=== PATIENT | male | born 1955 | race Caucasian/White ===

== ENCOUNTER 2016-06-10 10:15 | Emergency (ER) | payer OTHER ==
[~2016-06-10] VITALS: Ht 188 cm; Wt 106.0 kg
[~2016-06-10 10:15] MED LIST: ALLE12TA PO; ALPR0.5T99 PO; ENAL5TAB98 PO; EXEN10PE SQ; GLUC5TAB3 PO; MECL25 PO; PIOG15 PO; PROM25SU8 PO; STAR60TA PO
[2016-06-10 10:16] VITALS: BP 124/78; PULSE 116; RESP 24; TEMP 97.4; O2SAT 100
[2016-06-10] MEDS ORDERED: SODIUM CHLOR 0.9% 1000 ML INJ 1,000 ML IV SCH (11:36)
[2016-06-10] MEDS ORDERED: LORazepam 2 MG/ML VIAL IV PUSH ONE (11:45)
[2016-06-10 11:50] VITALS: RESP 18; O2SAT 97
[2016-06-10 12:00] VITALS: BP 114/67; PULSE 85; RESP 20; O2SAT 97
--- NOTE | 2016-06-10 12:04 | PD ---
HPI Chief Complaint: Anxiety Time Seen by Provider: 11:59 Travel History International Travel<30 days: No Contact w/Intl Traveler<30days: No Traveled to known affect area: No History of Present Illness HPI 60-year-old male that presents to the ED for evaluation of agitation, insomnia as well as restlessness and anxiety since stopping Reglan for this ago. Per patient he stopped taking this medication for gastroparesis secondary to making him sleepy. Per patient a coworker found him sleeping at work and he is concerned that he might lose his job if he continues taking this medication. Patient stopped that about 4 days ago and since then his been having severe agitation, insomnia and restlessness. Per patient he feels like he wants to hit someone but he doesn't want to do it. Per patient his more anxious than usual. He never had anything like this before. He denies any history of depression. Denies any suicidal or homicidal ideation. Per patient he also recently stopped taking his glipizide after his Dr. told yesterday that his sugars were going low. Per patient he had blood work yesterday which showed this at [facility]. Patient try to call his doctor to see if he could see him to get evaluated for the symptoms that he is complaining of now but he could not get a hold and so he decided to come here instead. Per patient he wants something to calm him down. Patient denies any pain of any kind. Per patient he is also not been eating much because he feels that he cannot keep anything down. He is able to keep some fluids down but states that he feels like his food and fluids go all the way to his throat. Allergies to adhesives. Symptoms have been progressively getting worse. PFSH Past Medical History Anxiety: Yes Heart Rhythm Problems: No Cancer: No Cardiovascular Problems: Yes High Cholesterol: No Chest Pain: No Cerebrovascular Accident: No Diabetes: Yes (takes insulin. last dose last night. oral meds today. last gluc 85) Patient Takes Glucophage: No Endocrine: Yes Genitourinary: No Headaches: Yes Hypertension: Yes Immune Disorder: No Musculoskeletal: No Neurologic: Yes Psychiatric: No Reproductive: No Respiratory: Yes (never smoked) Migraines: No Myocardial Infarction: No Seizures: No Thyroid Disease: No Tetanus Vaccination: > 5 Years Influenza Vaccination: No ?: Not Past Surgical History Abdominal Surgery: No Cardiac Surgery: No Ear Surgery: No Endocrine Surgery: No Eye Surgery: No Genitourinary Surgery: No Gynecologic Surgery: No Oral Surgery: Yes (TONSILS ) Thoracic Surgery: No Tonsillectomy: Yes Other Surgery: Yes Social History Alcohol Use: No Tobacco Use: No Substance Use: No Allergies-Medications (Allergen,Severity, Reaction): Coded Allergies: Adhesives (Verified Allergy, Severe, Rash, 11/07/09) Reported Meds & Prescriptions Reported Meds & Active Scripts Active Bethanechol 10 Mg Tab 10 Mg PO TIDAC PRN Promethazine Hcl (Promethazine HCl) 25 Mg Tab 25 Mg PO Q6HPRN FOR NAUSEA/VOMITING Antivert (Meclizine HCl) 25 Mg Tab 1-2 Tab PO QIDPRN Xanax (Alprazolam) 0.5 Mg Tab 0.5 Mg PO BIDPRN Ashley-D 12 Hour (Fexofenadine HCl/Pseudoephedrine) 12 Hour Tab 1 Tab PO BID Reported Byetta 10 Mcg/Dose Prefilled Pen (Exenatide) 10 Mcg/0.04 Ml Inj 10 Mcg SQ BIDAC FOR SUBCUTANEOUS INJECTION Vasotec (Enalapril Maleate) 5 Mg Tab 5 Mg PO DAILY Glucovance 5/500 (Glyburide/Metformin) Tab 1 Tab PO BID Starlix (Nateglinide) 60 Mg Tab 120 Mg PO TID Actos 15 mg (Pioglitazone HCl) 15 Mg Tab 15 Mg PO DAILY Review of Systems Except as stated in HPI: all other systems reviewed are Neg Physical Exam Narrative GENERAL: SKIN: Warm and dry. HEAD: Atraumatic. Normocephalic. EYES: Pupils equal and round. No scleral icterus. No injection or drainage. ENT: No nasal bleeding or discharge. Mucous membranes pink and moist. Tongue is midline. No uvula deviation. NECK: Trachea midline. No JVD. CARDIOVASCULAR: Regular rate and rhythm. No murmurs, S3, S4. RESPIRATORY: No accessory muscle use. Clear to auscultation. Breath sounds equal bilaterally. GASTROINTESTINAL: Abdomen soft, non-tender, nondistended. Hepatic and splenic margins not palpable. MUSCULOSKELETAL: Extremities without clubbing, cyanosis, or edema. No obvious deformities. Full range of motion of the upper and lower extremities bilaterally. 2+ pulses bilaterally. NEUROLOGICAL: Awake and alert. No obvious cranial nerve deficits. Motor grossly within normal limits. Five out of 5 muscle strength in the arms and legs. Normal speech. PSYCHIATRIC: Appropriate mood and affect; insight and judgment normal. Data Data Last Documented VS Vital Signs Date Time Temp Pulse Resp B/P Pulse Ox O2 Delivery O2 Flow Rate FiO2 06/10/16 12:00 85 20 114/67 97 Room Air 06/10/16 10:16 97.4 Orders Complete Blood Count With Diff (06/10/16 11:34) Comprehensive Metabolic Panel (06/10/16 11:34) Lipase (06/10/16 11:34) Urinalysis - C+S If Indicated (06/10/16 11:34) Magnesium (Mg) (06/10/16 11:34) Thyroid Stimulating Hormone (06/10/16 11:34) Iv Access Insert/Monitor (06/10/16 11:34) Ecg Monitoring (06/10/16 11:34) Oximetry (06/10/16 11:34) Sodium Chlor 0.9% 1000 Ml Inj (Ns 1000 M (06/10/16 11:36) Lorazepam Inj (Ativan Inj) (06/10/16 11:45) Blood Glucose (06/10/16 11:50) Electrocardiogram (06/10/16 ) Free Thyroxine (T4) (06/10/16 12:42) Labs Laboratory Tests Test 06/10/16 11:50 White Blood Count 11.2 TH/MM3 Red Blood Count 4.52 MIL/MM3 Hemoglobin 13.3 GM/DL Hematocrit 39.8 % Mean Corpuscular Volume 88.1 FL Mean Corpuscular Hemoglobin 29.3 PG Mean Corpuscular Hemoglobin 33.3 % Concent Red Cell Distribution Width 13.6 % Platelet Count 199 TH/MM3 Mean Platelet Volume 9.8 FL Neutrophils (%) (Auto) 79.3 % Lymphocytes (%) (Auto) 11.8 % Monocytes (%) (Auto) 8.4 % Eosinophils (%) (Auto) 0.2 % Basophils (%) (Auto) 0.3 % Neutrophils # (Auto) 8.9 TH/MM3 Lymphocytes # (Auto) 1.3 TH/MM3 Monocytes # (Auto) 0.9 TH/MM3 Eosinophils # (Auto) 0.0 TH/MM3 Basophils # (Auto) 0.0 TH/MM3 CBC Comment DIFF FINAL Differential Comment Sodium Level 135 MEQ/L Potassium Level 4.0 MEQ/L Chloride Level 101 MEQ/L Carbon Dioxide Level 25.3 MEQ/L Anion Gap 9 MEQ/L Blood Urea Nitrogen 14 MG/DL Creatinine 1.14 MG/DL Estimat Glomerular Filtration 66 ML/MIN Rate Random Glucose 126 MG/DL Calcium Level 9.5 MG/DL Magnesium Level 2.0 MG/DL Total Bilirubin 0.5 MG/DL Aspartate Amino Transf 13 U/L (AST/SGOT) Alanine Aminotransferase 16 U/L (ALT/SGPT) Alkaline Phosphatase 39 U/L Total Protein 7.6 GM/DL Albumin 3.7 GM/DL Lipase 92 U/L Thyroid Stimulating Hormone 0.139 uIU/ML 3rd Gen [facility] Medical Decision Making Medical Screen Exam Complete: Yes Emergency Medical Condition: Yes Medical Record Reviewed: Yes Interpretation(s) CBC & BMP Diagram 06/10/16 11:50 LFTS WNL TSH low Differential Diagnosis Anxiety versus medication side effect versus withdrawal from medication versus gastroparesis versus depression versus tardive dyskinesia Narrative Course 60-year-old male that presents to the ED for evaluation of anxiety, agitation and insomnia. Patient was properly examined and was found to have signs and symptoms which appear to be consistent with medication side effect likely from abruptly discontinued Reglan 4 days ago. At this time I recommend basic labs and EKG to make sure patient doesn't have acute disease. Patient will be given an IV dose of Ativan to see if this will help calm him down. Labs and imaging showed low TSH, free T4 ordered. I spoke with Dr. Howell over the phone for Dr. Schmidt's office who recommended that the patient be switched from Reglan to Bethanechol 10 mg 3 times a day. She recommends against starting erythromycin secondary to not knowing what patient's and the emptying study showed. My attending Dr. Bell evaluated the patient and agrees with this plan. At this time is unclear as to why patient has the sleepiness but it appears that he could be related to sleep apnea. I will give patient a prescription for Vistaril to cover for the anxiety and restlessness to the patient is feeling. He understands that he needs to follow with his PCP and Dr. Schmidt to be able to have more studies done and to help and treat this chronic conditions. At this time I recommend liquid diet and small meals to help with the symptoms. Follow-up with PCP. See ED worsening symptoms. Diagnosis Primary Impression: Anxiety Additional Impressions: Gastroparesis Medication side effect Qualified Code: T88.7XXA - Medication side effect, initial encounter Referrals: Iris Munoz MD Patient Instructions: General Instructions Additional Instructions: Stop the Reglan. Take new medication as prescribed which should gradually help with symptoms. Dr Schmidt wants to see you in his office as soon as possible to better evaluate your condition. See ED if worsening symptoms F/u PCP. Take anxiety medication to help with the restlessness and insomnia. Med/Other Pt SpecificInfo: Prescription(s) given Scripts Bethanechol 10 Mg Tab10 Mg PO TIDAC PRN (Urinary Symptom Managemen) #30 TAB Ref 0 Prov:Sandra Bell DO 06/10/16 Disposition: 01 DISCHARGE HOME Condition: Stable Daniel Newton Jun 10, 2016 12:04
[2016-06-10 12:06] LABS: AUTOMATED NEUTROPHIL # 8.9 TH/MM3 (1.8-7.7); BASOPHIL % 0.3 % (0.0-2.0); EOSINOPHIL % 0.2 % (0.0-4.0); HEMATOCRIT 39.8 % (39.0-51.0); HEMO FLAGS DIFF FINAL; LYMPH % 11.8 % (9.0-44.0); LYMPHOCYTE # 1.3 TH/MM3 (1.0-4.8); MEAN CELL VOLUME 88.1 FL (80.0-100.0); MEAN CORPUSCULAR HEMOGLOBIN 29.3 PG (27.0-34.0); MEAN CORPUSCULAR HGB CONC 33.3 % (32.0-36.0); MONO % 8.4 % (0.0-8.0); NEUT % 79.3 % (16.0-70.0); PLATELET COUNT 199 TH/MM3 (150-450); RED BLOOD COUNT 4.52 MIL/MM3 (4.50-5.90); RED CELL DISTRIBUTION WIDTH 13.6 % (11.6-17.2); WHITE BLOOD COUNT 11.2 TH/MM3 (4.0-11.0)
[2016-06-10 12:34] LABS: ALKALINE PHOSPHATASE 39 U/L (45-117); ALT (GPT) 16 U/L (12-78); ANION GAP 9 MEQ/L (5-15); AST (GOT) 13 U/L (15-37); BICARBONATE 25.3 MEQ/L (21.0-32.0); BLOOD UREA NITROGEN 14 MG/DL (7-18); CHLORIDE 101 MEQ/L (98-107); GLOMERULAR FILTRATION RATE 66 ML/MIN (>89); SODIUM (NA) 135 MEQ/L (136-145); TOTAL BILIRUBIN ADULT 0.5 MG/DL (0.2-1.0)
[2016-06-10 13:00] VITALS: BP 113/68; PULSE 79; RESP 20; O2SAT 96
[2016-06-10] MEDS ORDERED: BETH10TA2 PO (13:07)
[2016-06-10] MEDS ORDERED: VIST50CA PO (13:14)
[2016-06-10 15:09] VITALS: BP 120/71; PULSE 72; RESP 20; O2SAT 96
--- NOTE | 2016-06-11 12:27 | EKG ---
Date Performed: 06/10/2016 Time Performed: 12:56:11 PTAGE: 60 years EKG: Sinus rhythm NORMAL ECG Compared to prior tracing no significant change PREVIOUS TRACING : 11/07/2009 01.59 DOCTOR: Hadley Tavarez Interpretating Date/Time 06/11/2016 12:26:49
== END 2016-06-10 15:11 | disposition home or self-care (01) ==
LOC: NEPC 10:15
DX: F41.9 Anxiety disorder, unspecified (principal); K31.84 Gastroparesis; E11.9 Type 2 diabetes mellitus without complications; I10 Essential (primary) hypertension; Z79.4 Long term (current) use of insulin; T88.7XXA Unspecified adverse effect of drug or medicament, initial encounter; Z91.14 Patient's other noncompliance with medication regimen
CPT/HCPCS: 80053; 83690; 83735; 84439; 84443; 85025; 93005; 96361; 96374; 99284; J2060; J7030

== ENCOUNTER 2016-10-19 02:24 | Inpatient (IN) | payer OTHER ==
[~2016-10-19 02:24] MED LIST changes: +BETH10TA2 PO; +VIST50CA PO
[2016-10-19 02:26] VITALS: BP 149/83; PULSE 85; RESP 16; TEMP 98.5; O2SAT 97
--- NOTE | 2016-10-19 03:37 | PD ---
HPI Chief Complaint: Abdominal Pain Time Seen by Provider: 03:20 Travel History International Travel<30 days: No Contact w/Intl Traveler<30days: No Traveled to known affect area: No History of Present Illness HPI The patient is a 61 year old male who presents to the [facility] emergency department with a history of abdominal pain that began at 11PM after eating. The pain is midepigastric. The pain is getting worse with time. It is constant. It is an aching sensation with intermittent sharp pains. He has had nausea, chills, and diarrhea x1. He denies seeing any blood in his stool. The patient is concerned that it may be related to his gallbladder as in May he had a CT scan that showed some gallstones. He reports that he did see Dr. Shepherd regarding this, however as he was not having pain he did not recommend surgery. The patient reports that the gallstones weren't incidental finding on a CT scan of the abdomen and pelvis that was done for a workup related to the patient having an unexplained 35 pound weight loss since May. He reports that he is also had endoscopy and colonoscopy that was unremarkable. The patient reports that he did have a stomach ache on Wednesday, however that resolved with drinking some soda and belching. On review of systems, the patient denies having any known fevers,cough, congestion, neck pain, chest pain , shortness of breath, vomiting, urinary symptoms, or neurologic symptoms. [facility] Past Medical History Narrative Medical The patient's past medical history is significant for weight loss of 35 lbs since May, DM, Depression, retained needle in the subcutaneous tissues of the abdomen for the last year related to an insulin injection, history of hypertension Anxiety: Yes Heart Rhythm Problems: No Cancer: No Cardiovascular Problems: Yes High Cholesterol: No Chest Pain: No Cerebrovascular Accident: No Diabetes: Yes Patient Takes Glucophage: Yes Diminished Hearing: No Endocrine: Yes Genitourinary: No Headaches: Yes Hypertension: Yes Immune Disorder: No Musculoskeletal: No Neurologic: Yes Psychiatric: No Reproductive: No Respiratory: Yes (never smoked) Migraines: No Myocardial Infarction: No Seizures: No Thyroid Disease: No Past Surgical History Narrative Surgical The patient's past surgical history is significant for 4 back sx, tonsillectomy , TENS unit and then removal, 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 Abdominal Surgery: No Cardiac Surgery: No Ear Surgery: No Endocrine Surgery: No Eye Surgery: No Genitourinary Surgery: No Gynecologic Surgery: No Oral Surgery: Yes (TONSILS ) Thoracic Surgery: No Tonsillectomy: Yes Other Surgery: Yes Social History Alcohol Use: No Tobacco Use: No Substance Use: No Allergies-Medications (Allergen,Severity, Reaction): Coded Allergies: adhesive (Unverified Allergy, Severe, Rash, 10/06/16) Reported Meds & Prescriptions Reported Meds & Active Scripts Active Vistaril (Hydroxyzine Pamoate) 50 Mg Cap 50 Mg PO QID PRN Bethanechol 10 Mg Tab 10 Mg PO TIDAC PRN Promethazine Hcl (Promethazine HCl) 25 Mg Tab 25 Mg PO Q6HPRN FOR NAUSEA/VOMITING Antivert (Meclizine HCl) 25 Mg Tab 1-2 Tab PO QIDPRN Xanax (Alprazolam) 0.5 Mg Tab 0.5 Mg PO BIDPRN Ashley-D 12 Hour (Fexofenadine HCl/Pseudoephedrine) 12 Hour Tab 1 Tab PO BID Reported Byetta 10 Mcg/Dose Prefilled Pen (Exenatide) 10 Mcg/0.04 Ml Inj 10 Mcg SQ BIDAC FOR SUBCUTANEOUS INJECTION Vasotec (Enalapril Maleate) 5 Mg Tab 5 Mg PO DAILY Glucovance 5/500 (Glyburide/Metformin) Tab 1 Tab PO BID Starlix (Nateglinide) 60 Mg Tab 120 Mg PO TID Actos 15 mg (Pioglitazone HCl) 15 Mg Tab 15 Mg PO DAILY Review of Systems Except as stated in HPI: all other systems reviewed are Neg General / Constitutional: Positive: Weight Loss, No: Fever Eyes: No: Visual changes HENT: No: Headaches Cardiovascular: No: Chest Pain or Discomfort Respiratory: No: Shortness of Breath Gastrointestinal: Positive: Nausea, Diarrhea, Abdominal Pain, Changes in Bowel Habits, Loss of Appetite, No: Vomiting, Hematemesis, Hematochezia, Constipation , Indigestion Genitourinary: No: Dysuria Musculoskeletal: No: Pain Skin: No Rash Neurologic: No: Weakness Psychiatric: No: Depression Endocrine: No: Polydipsia Hematologic/Lymphatic: No: Easy Bruising Physical Exam Narrative General: The patient is a well-developed well-nourished male in no acute distress. Head and Neck exam: Head is normocephalic atraumatic. Eyes: EOMI, pupils are equal round and reactive to light. Nose: Midline septum with pink mucous membranes Mouth: Dentition unremarkable. Moist mucus membranes. Posterior oropharynx is not erythematous. No tonsillar hypertrophy. Uvula midline. Airway patent. Neck: No palpable lymphadenopathy. No nuchal rigidity. No thyromegaly. Cardiovascular: Regular rate and rhythm without murmurs, gallops, or rubs. No pulse deficit to the extremities. Lungs: Clear to auscultation bilaterally. No wheezes, rhonchi, or rales. Abdomen: Soft, with tenderness on palpation of the midepigastric area and bilateral upper quadrants of the abdomen. N the patient reports that the tenderness is worse in the midepigastric area. The patient has no tenderness on palpation of the lower quadrants of the abdomen. No guarding, rebound, or rigidity. The patient has a positive Boland sign. No tenderness on palpation of McBurney's point. Normal bowel sounds are audible. Extremities: No clubbing, cyanosis, or edema. 2+ pulses in all 4 extremities. Back: No spinous process tenderness to palpation. Right-sided CVA tenderness. Neurologic Exam: Grossly nonfocal. Skin Exam: No rash noted. Intact skin that is warm and dry. Data Data Last Documented VS Vital Signs Date Time Temp Pulse Resp B/P (MAP) Pulse Ox O2 Delivery O2 Flow Rate FiO2 10/19/16 02:26 98.5 85 16 149/83 (105) 97 Room Air Orders Orders Electrocardiogram (10/19/16 03:21) Complete Blood Count With Diff (10/19/16 03:21) Comprehensive Metabolic Panel (10/19/16 03:21) Prothrombin Time / Inr (Pt) (10/19/16 03:21) Act Partial Throm Time (Ptt) (10/19/16 03:21) C-Reactive Protein (Crp) (10/19/16 03:21) Lipase (10/19/16 03:21) Urinalysis - C+S If Indicated (10/19/16 03:21) Magnesium (Mg) (10/19/16 03:21) Iv Access Insert/Monitor (10/19/16 03:21) Ecg Monitoring (10/19/16 03:21) Oximetry (10/19/16 03:21) Lactic Acid (10/19/16 03:21) Us Abdomen Gallbladder (10/19/16 03:40) Morphine Inj (Morphine Inj) (10/19/16 03:45) Ondansetron Inj (Zofran Inj) (10/19/16 03:45) Sodium Chlor 0.9% 1000 Ml Inj (Ns 1000 M (10/19/16 03:45) Piperacil-Tazo 3.375 Gm Premix (Zosyn 3. (10/19/16 05:45) Admit Order (Ed Use Only) (10/19/16 05:34) Labs Laboratory Tests Test 10/19/16 04:35 White Blood Count 9.6 TH/MM3 Red Blood Count 4.67 MIL/MM3 Hemoglobin 13.9 GM/DL Hematocrit 42.1 % Mean Corpuscular Volume 90.0 FL Mean Corpuscular Hemoglobin 29.8 PG Mean Corpuscular Hemoglobin Concent 33.1 % Red Cell Distribution Width 13.3 % Platelet Count 181 TH/MM3 Mean Platelet Volume 9.8 FL Neutrophils (%) (Auto) 72.9 % Lymphocytes (%) (Auto) 15.0 % Monocytes (%) (Auto) 10.4 % Eosinophils (%) (Auto) 1.1 % Basophils (%) (Auto) 0.6 % Neutrophils # (Auto) 7.0 TH/MM3 Lymphocytes # (Auto) 1.4 TH/MM3 Monocytes # (Auto) 1.0 TH/MM3 Eosinophils # (Auto) 0.1 TH/MM3 Basophils # (Auto) 0.1 TH/MM3 CBC Comment DIFF FINAL Differential Comment Prothrombin Time 10.6 SEC Prothromb Time International Ratio 1.0 RATIO Activated Partial Thromboplast Time 26.3 SEC Blood Urea Nitrogen 12 MG/DL Creatinine 1.08 MG/DL Random Glucose 153 MG/DL Total Protein 7.6 GM/DL Albumin 3.7 GM/DL Calcium Level 9.2 MG/DL Magnesium Level 2.1 MG/DL Alkaline Phosphatase 41 U/L Aspartate Amino Transf (AST/SGOT) 9 U/L Alanine Aminotransferase (ALT/SGPT) 17 U/L Total Bilirubin 0.6 MG/DL Sodium Level 137 MEQ/L Potassium Level 4.6 MEQ/L Chloride Level 103 MEQ/L Carbon Dioxide Level 29.1 MEQ/L Anion Gap 5 MEQ/L Estimat Glomerular Filtration Rate 70 ML/MIN Lactic Acid Level 1.0 mmol/L C-Reactive Protein LESS THAN 0.29 MG/DL Lipase 96 U/L MDM Medical Decision Making Medical Screen Exam Complete: Yes Emergency Medical Condition: Yes Medical Record Reviewed: Yes Interpretation(s) Last Impressions Gall Bladder Ultrasound 10/19/16 0340 Signed Impressions: Service Date/Time: Wednesday, October 19, 2016 03:59 - CONCLUSION: 1. Cholelithiasis with distended gallbladder and positive sonographic Boland's sign. Findings are suspicious for acute cholecystitis. 2. Remainder of the examination is within normal limits. Morales Llanes MD Differential Diagnosis Pancreatitis, versus biliary colic, versus acute cholecystitis, versus colitis Narrative Course During the course of the patients emergency department visit, the patients history, examination, and differential diagnosis were reviewed with the patient. The patient had IV access obtained and blood work sent for analysis. The patient was placed on a front desk monitor with oximetry and blood pressure monitoring. The patient was initially provided morphine 2 mg IV for pain, Zofran 4 mg IV for nausea, normal saline at 100 mL per hour. The patients laboratory studies were reviewed and remarkable for white count 9.6 , hemoglobin 13.9, platelets 181 with neutrophils 72.9, monocytes 10.4. CMP is remarkable for glucose of 153, AST 9, alkaline phosphatase 41, C-reactive protein less than 0.29, lipase 96, lactic acid 1.0, PT PTT within normal limits. Radiology studies were reviewed and remarkable for an ultrasound that shows cholelithiasis with a distended gallbladder and a positive sonographic Boland sign. Findings are suspicious for acute cholecystitis, remainder of the examination is within normal limits. The patient's case was discussed with Dr. Flores. He requested that the [facility] be [facility] and that he will see the patient in consultation. The patients results were discussed with the patient, including the plan of care. I explained that further testing and/ or monitoring is indicated based on the patients history, examination, and/ or laboratory findings. Therefore, I recommended admission for additional evaluation. The patient expressed understanding and was agreeable with this plan. The patient was admitted to the hospital in stable condition and sent to a bed under the care of the [facility]. Physician Communication Physician Communication I spoke to Dr. Flores regarding this patient's case at 5:28 AM. He requested that the patient be admitted to the hospitalist service and that he will see the patient consultation. He was agreeable with the plan for the patient did receive a dose of Zosyn in the emergency department. I then spoke to Dr. Hamilton regarding this patient's case. He did agree to admit the patient to the [facility] hospitalist service. Diagnosis Primary Impression: Acute cholecystitis Admitting Information Admitting Physician Requests: Admit Rosa Maria Locke MD Oct 19, 2016 03:37
[2016-10-19] MEDS ORDERED: MORPHINE SULFATE 4 MG/ML INJ IV PUSH ONE (03:45)
[2016-10-19] MEDS ORDERED: ONDANSETRON HCL 4 MG/2 ML VIAL IV PUSH ONE (03:45)
[2016-10-19] MEDS ORDERED: SODIUM CHLOR 0.9% 1000 ML INJ 1,000 ML IV SCH ×2 (03:45→05:45)
[2016-10-19 04:52] LABS: BASOPHIL # 0.1 TH/MM3 (0-0.2); BASOPHIL % 0.6 % (0.0-2.0); EOSINOPHIL # 0.1 TH/MM3 (0-0.4); EOSINOPHIL % 1.1 % (0.0-4.0); HEMATOCRIT 42.1 % (39.0-51.0); HEMO FLAGS DIFF FINAL; LYMPHOCYTE # 1.4 TH/MM3 (1.0-4.8); MEAN CORPUSCULAR HEMOGLOBIN 29.8 PG (27.0-34.0); MEAN CORPUSCULAR HGB CONC 33.1 % (32.0-36.0); MONO % 10.4 % (0.0-8.0); NEUT % 72.9 % (16.0-70.0); PLATELET COUNT 181 TH/MM3 (150-450); RED BLOOD COUNT 4.67 MIL/MM3 (4.50-5.90); RED CELL DISTRIBUTION WIDTH 13.3 % (11.6-17.2); WHITE BLOOD COUNT 9.6 TH/MM3 (4.0-11.0)
--- NOTE | 2016-10-19 04:55 | RADRPT ---
EXAM DATE/TIME: 10/19/2016 03:59 [facility] COMPARISON: No previous studies available for comparison. INDICATIONS : Right upper quadrant pain. MEDICAL HISTORY : Hypertension. MRSA. Diabetes. Anxiety. Claustrophobia. SURGICAL HISTORY : Tonsillectomy. Back surgery. Right knee surgery. ENCOUNTER: Initial ACUITY: 1 day PAIN SCORE: 7/10 LOCATION: Right upper quadrant MEASUREMENTS: LIVER: 16.7 cm length COMMON DUCT: 3 mm RIGHT KIDNEY: 12.1 x 5.9 x 5.2 cm FINDINGS: LIVER: Normal echotexture without focal lesion or ductal dilatation. COMMON DUCT: No intraluminal mass or stone visualized. GALLBLADDER: Gallbladder is distended with multiple echogenic shadowing foci. No wall thickening or pericholecysti c fluid is present. Boiler Tube Reamer reports a positive sonographic Boland sign. PANCREAS: The visualized portions are within normal limits. RIGHT KIDNEY: No evidence of hydronephrosis, stone, or mass. CONCLUSION: 1. Cholelithiasis with distended gallbladder and positive sonographic Boland's sign. Findings are holly picious for acute cholecystitis. 2. Remainder of the examination is within normal limits. Morales Llanes MD on October 19, 2016 at 4:52 Board Certified Radiologist. This report was verified electronically.
[2016-10-19 05:11] LABS: ANION GAP 5 MEQ/L (5-15); AST (GOT) 9 U/L (15-37); BICARBONATE 29.1 MEQ/L (21.0-32.0); BLOOD UREA NITROGEN 12 MG/DL (7-18); CHLORIDE 103 MEQ/L (98-107); GLOMERULAR FILTRATION RATE 70 ML/MIN (>89); MAGNESIUM 2.1 MG/DL (1.5-2.5); POTASSIUM 4.6 MEQ/L (3.5-5.1); SODIUM (NA) 137 MEQ/L (136-145)
[2016-10-19 05:12] LABS: ALT (GPT) 17 U/L (12-78)
[2016-10-19 05:14] LABS: ALKALINE PHOSPHATASE 41 U/L (45-117); TOTAL BILIRUBIN ADULT 0.6 MG/DL (0.2-1.0)
[2016-10-19 05:16] LABS: APTT (PATIENT) 26.3 SEC (24.3-30.1); PROTHROMBIN TIME - PATIENT 10.6 SEC (9.8-11.6)
[2016-10-19] MEDS ORDERED: MORPHINE SULFATE 4 MG/ML INJ IV PUSH PRN (05:45)
[2016-10-19] MEDS ORDERED: NALOXONE HCL 0.4 MG/ML AMP IV PRN (05:45)
[2016-10-19] MEDS ORDERED: DEXTROSE 50% IN WATER 50 ML VIAL(D50) IV PRN (05:45)
[2016-10-19] MEDS ORDERED: GLUCAGON 1 MG/ML VIAL OTHER PRN (05:45)
[2016-10-19] MEDS ORDERED: PIPERACIL-TAZO 3.375 GM PREMIX 50 ML IV ONE (05:45)
[2016-10-19] MEDS ORDERED: LANTUS2P SQ (05:47)
[2016-10-19] MEDS ORDERED: METF500T PO (05:47)
[2016-10-19] MEDS ORDERED: LISI-519 PO (05:47)
[2016-10-19] MEDS: INSULIN ASPART SUPPLEMENTAL SCALE SQ SCH ×4 (07:00→20:46)
[2016-10-19 07:53] VITALS: BP 125/65; PULSE 71; RESP 18; TEMP 97.3; O2SAT 96
--- NOTE | 2016-10-19 08:17 | HHI.HP ---
HPI Service [facility] Hospitalists Primary Care Physician Tri Mosley M.D. Admission Diagnosis Acute cholecystitis Chief Complaint: abdomen pain Travel History International Travel<30 Days: No Contact w/Intl Traveler <30 Da: No Traveled to Known Affected Are: No History of Present Illness Pt is 61 yo with dm2 who presents with ruq/epigastric pain after eating a meal yesterday. Pain started about 30min after and he has been very nauseated. Seen in ED and u/s concerning for acute cholecystitis. Pt admitted with surgical consult. Pt says he has been having problems since May with pain and vomiting and underwent both egd/colonoscopy that are reportedly unremarkable. Pt says he was told his gallbladder was a "gravel pit" and seen for evaluation. But in May his sx's did not warrant lap magalie. Pt says he lost 35 pounds since that time. Review of Systems Other abdomen pain nausea Past Family Social History Past Medical History dm2 septic left knee bursitis/debridement.mrsa lumbar laminectomy egd/colonoscopy 2017 tonsillectomy Reported Medications Lantus Inj (Insulin Glargine) 1,000 Unit/10 Ml Vial 37 Units SQ HS Metformin (Metformin HCl) 500 Mg Tab 500 Mg PO BIDPC With meals Lisinopril 5 Mg Tab 5 Mg PO DAILY another unknown medication. Allergies: Coded Allergies: adhesive (Unverified Allergy, Severe, Rash, 10/06/16) Family History nc Social History no etoh/tob Physical Exam Vital Signs heart reg lung cta abd ruq/epigastric tenderness/bs ext no edema Vital Signs Date Time Temp Pulse Resp B/P (MAP) Pulse Ox O2 Delivery O2 Flow Rate FiO2 10/19/16 07:40 10/19/16 02:26 98.5 85 16 149/83 (105) 97 Room Air Laboratory Laboratory Tests Test 10/19/16 04:35 White Blood Count 9.6 Red Blood Count 4.67 Hemoglobin 13.9 Hematocrit 42.1 Mean Corpuscular Volume 90.0 Mean Corpuscular Hemoglobin 29.8 Mean Corpuscular Hemoglobin Concent 33.1 Red Cell Distribution Width 13.3 Platelet Count 181 Mean Platelet Volume 9.8 Neutrophils (%) (Auto) 72.9 Lymphocytes (%) (Auto) 15.0 Monocytes (%) (Auto) 10.4 Eosinophils (%) (Auto) 1.1 Basophils (%) (Auto) 0.6 Neutrophils # (Auto) 7.0 Lymphocytes # (Auto) 1.4 Monocytes # (Auto) 1.0 Eosinophils # (Auto) 0.1 Basophils # (Auto) 0.1 CBC Comment DIFF FINAL Differential Comment Prothrombin Time 10.6 Prothromb Time International Ratio 1.0 Activated Partial Thromboplast Time 26.3 Blood Urea Nitrogen 12 Creatinine 1.08 Random Glucose 153 Total Protein 7.6 Albumin 3.7 Calcium Level 9.2 Magnesium Level 2.1 Alkaline Phosphatase 41 Aspartate Amino Transf (AST/SGOT) 9 Alanine Aminotransferase (ALT/SGPT) 17 Total Bilirubin 0.6 Sodium Level 137 Potassium Level 4.6 Chloride Level 103 Carbon Dioxide Level 29.1 Anion Gap 5 Estimat Glomerular Filtration Rate 70 Lactic Acid Level 1.0 C-Reactive Protein LESS THAN 0.29 Lipase 96 Result Diagram: 10/19/16 0435 10/19/16 0435 Caprini VTE Risk Assessment Caprini VTE Risk Assessment: Mod/High Risk (score >= 2) Caprini Risk Assessment Model Point Value = 1 Point Value = 2 Point Value = 3 Point Value = 5 Age 41-60 Minor surgery BMI > 25 kg/m2 Swollen legs Varicose veins or History of unexplained or recurrent spontaneous Oral contraceptives or hormone replacement Sepsis (< 1 month) Serious lung disease, including pneumonia (< 1 month) Abnormal pulmonary function Acute myocardial infarction Congestive heart failure (< 1 month) History of inflammatory bowel disease Medical patient at bed rest Age 61-74 Arthroscopic surgery Major open surgery (> 45 min) Laparoscopic surgery (> 45 min) Malignancy Confined to bed (> 72 hours) Immobilizing plaster cast Central venous access Age >= 75 History of VTE Family history of VTE Factor V Leiden Prothrombin [id number] Lupus anticoagulant Anticardiolipin antibodies Elevated serum homocysteine Heparin-induced thrombocytopenia Other congenital or acquired thrombophilia Stroke (< 1 month) Elective arthroplasty Hip, pelvis, or leg fracture Acute spinal cord injury (< 1 month) Prophylaxis Regimen Total Risk Factor Score Risk Level Prophylaxis Regimen 0-1 Low Early ambulation 2 Moderate Order ONE of the following: *Sequential Compression Device (SCD) *Heparin 5000 units SQ BID 3-4 Higher Order ONE of the following medications: *Heparin 5000 units SQ TID *Enoxaparin/Lovenox 40 mg SQ daily (WT < 150 kg, CrCl > 30 mL/min) *Enoxaparin/Lovenox 30 mg SQ daily (WT < 150 kg, CrCl > 10-29 mL/min) *Enoxaparin/Lovenox 30 mg SQ BID (WT < 150 kg, CrCl > 30 mL/min) AND/OR *Sequential Compression Device (SCD) 5 or more Highest Order ONE of the following medications: *Heparin 5000 units SQ TID (Preferred with Epidurals) *Enoxaparin/Lovenox 40 mg SQ daily (WT < 150 kg, CrCl > 30 mL/min) *Enoxaparin/Lovenox 30 mg SQ daily (WT < 150 kg, CrCl > 10-29 mL/min) *Enoxaparin/Lovenox 30 mg SQ BID (WT < 150 kg, CrCl > 30 mL/min) AND *Sequential Compression Device (SCD) Assessment and Plan Problem List: (1) Acute cholecystitis ICD Codes: K81.0 - Acute cholecystitis Status: Acute Plan: Pt is 62 yo with dm2. His medications have been reduced significantly due to weight loss. abdomen pain/nausea on/off with "35pound weight loss since May" evaluation concerning for acute cholecystitis. known cholelithiasis. ivf pain control npo gen surg consult for lap magalie today ssi. hold scheduled insulin. dvt prophylaxis (2) DM2 (diabetes mellitus, type 2) ICD Codes: E11.9 - Type 2 diabetes mellitus without complications Status: Chronic Physician Certification 2 Midnight Certification Type: Admission for Inpatient Services Order for Inpatient Services The services are ordered in accordance with Medicare regulations or non- Medicare payer requirements, as applicable. In the case of services not specified as inpatient-only, they are appropriately provided as inpatient services in accordance with the 2-midnight benchmark. Estimated LOS (days): 2 2 days is the estimated time the patient will need to remain in the hospital, assuming treatment plan goals are met and no additional complications. Post-Hospital Plan: Home Dagoberto Stover MD Oct 19, 2016 08:17
[2016-10-19 11:25] VITALS: BP 118/71; PULSE 66; RESP 18; TEMP 97.1; O2SAT 97
[2016-10-19] MEDS: DEXT 5%-NACL 0.9% 1000 ML INJ 1,000 ML IV SCH (11:33)
[2016-10-19] MEDS ORDERED: PIPERACILLIN/TAZ 3.375 GM VIAL 3.375 GM in SODIUM CHLORIDE 0.9% INJ 50 ML IV SCH (12:00)
[2016-10-19] MEDS: PIPERACIL-TAZO 3.375 GM PREMIX 50 ML IV SCH ×2 (14:28→18:28)
[2016-10-19] MEDS ORDERED: PRAV20TA2 PO (14:43)
--- NOTE | 2016-10-19 15:12 | EKG ---
Date Performed: 10/19/2016 Time Performed: 04:36:12 PTAGE: 61 years EKG: Sinus rhythm NORMAL ECG PREVIOUS TRACING : 06/10/2016 12.56 Since previous tracing, no significant change noted DOCTOR: Zaki Melendrez Interpretating Date/Time 10/19/2016 15:10:46
[2016-10-19 16:00] VITALS: BP 114/74; PULSE 70; RESP 16; TEMP 97.2; O2SAT 97
[2016-10-19 20:20] VITALS: BP 103/59; PULSE 77; RESP 16; TEMP 97.9; O2SAT 96
[2016-10-20] VITALS (7 sets, daily range): BP systolic 116–137; BP diastolic 66–79; PULSE 76–89; RESP 16–18; TEMP 97.2–99.5; O2SAT 95–99
[2016-10-20] MEDS: PIPERACIL-TAZO 3.375 GM PREMIX 50 ML IV SCH ×4 (00:06→18:00)
[2016-10-20] MEDS: DEXT 5%-NACL 0.9% 1000 ML INJ 1,000 ML IV SCH ×2 (00:06→22:45)
[2016-10-20] MEDS: INSULIN ASPART SUPPLEMENTAL SCALE SQ SCH ×3 (06:01→20:32)
[2016-10-20] MEDS: LISINOPRIL 5 MG TAB PO SCH (08:33)
[2016-10-20] MEDS ORDERED: ACETAMINOPHEN 325 MG TAB PO PRN (09:45)
[2016-10-20] MEDS ORDERED: FAMOTIDINE 20 MG/2 ML VIAL ONE (13:14)
[2016-10-20] MEDS ORDERED: MIDAZOLAM HCL 2 MG/2 ML VIAL ONE (13:14)
[2016-10-20] MEDS ORDERED: ACETAMINOPHEN 1000 MG/100 ML 100 ML IV ONE (13:14)
[2016-10-20] MEDS ORDERED: DEXAMETHASONE SOD PHOS 4 MG/ML VIAL ONE (13:14)
[2016-10-20] MEDS ORDERED: LACTATED RINGER'S 1000 ML INJ 1,000 ML IV ONE (13:30)
[2016-10-20] MEDS ORDERED: PROPOFOL 200 MG/20 ML AMP IV ONE (13:30)
[2016-10-20] MEDS ORDERED: NEOSTIGMINE 3 MG/3 ML SYR IV ONE (13:30)
[2016-10-20] MEDS ORDERED: ONDANSETRON HCL 4 MG/2 ML VIAL IV PUSH ONE (13:30)
[2016-10-20] MEDS ORDERED: BUPIVACAINE/EPINEPHRINE 0.5% 50 ML VIAL ONE (13:31)
--- NOTE | 2016-10-20 14:10 | HHI.PR ---
Subjective Subjective Notes Denies pain today. Objective Vitals/I&O Vital Signs Date Time Temp Pulse Resp B/P (MAP) Pulse Ox O2 Delivery O2 Flow Rate FiO2 10/20/16 10:15 97.9 76 18 133/79 (97) 99 10/19/16 02:26 Room Air Cardiovascular: Regular Lungs: Clear Abdomen: Non-distended, Non-tender, BS normal Extremities: No edema A/P Assessment and Plan Acute cholecystitis on admission; now asx. Plan: To OR for lap cholecystectomy. I have explained the risks of the procedure including visceral injury/CBD injury/need for open procedure or post- op ERCP. He understands and agrees. Toro Pardo MD Oct 20, 2016 14:10
[2016-10-20] MEDS ORDERED: DO NOT ADM ANY ANTICOAGULANT DRUGS PRN (15:45)
--- NOTE | 2016-10-20 16:23 | PD.OP ---
cc: Toro Pardo MD Operative Report Date of Surgery: Oct 20, 2016 Preoperative Diagnosis: Acute cholecystitis Postoperative Diagnosis: Acute cholecystitis Procedure: Laparoscopic cholecystectomy Anesthesia: General endotracheal Surgeon: Toro Pardo Twist Tester(s): George Heller CFA Operation and Findings: Operative findings: The patient was found to have an acutely disease gallbladder with thick wall with quite a bit of edema. The gallbladder itself was tense with very viscous bile and several extremely large stones. The cystic duct and common bile duct were seen to be of normal caliber. Operative procedure: The patient was brought to the operating room and after satisfactory general endotracheal anesthesia obtained, the abdomen was prepped and draped in usual sterile fashion. 0.5% Marcaine with epinephrine was used to infiltrate the skin for local anesthesia. A small incision was made just above the umbilicus and a 5 mm trochars inserted in the peritoneal cavity under direct visualization. The abdomen was then distended to 15 mmHg using carbon dioxide after which the camera was reinserted and visceral injury inspected for , with none being identified. Under direct visualization a 12 port and a 5 port were placed in the upper midline. The fundus of the gallbladder was seen to be extremely tense and approximately 15 mL's of thick bile was withdrawn without much collapse of the gallbladder indicating its thick, edematous pérez. Shelley's pouch was then dissected free from mild adhesions to the omentum and the area grasped and retracted inferiorly and laterally, placing tension on the hepatoduodenal ligament. The cystic artery cystic duct were then dissected free bluntly to obtain the critical view. Once the critical view been completely obtained the cystic artery was divided near its junction with the gallbladder using the harmonic scalpel. The cystic duct was likewise divided near its junction with the gallbladder. The gallbladder was then dissected free from the liver bed using the harmonic scalpel. It was placed within an Endo Catch bag and brought through the upper midline incision which was necessarily quite enlarged to allow egress of the thickened gallbladder as well as extremely large stones which cannot be crushed. After reinsertion of the trocar, the liver bed was inspected and found to be hemostatic. The cystic duct cystic artery stumps were both seen to be intact with no leakage of bile or blood. Irrigation was carried out and hemostasis again checked for, with a small area of oozing in the liver bed which was controlled with a nu knit gauze. The carbon dioxide was then vented as completely as possible the atmosphere after which the ports were removed and the 12 mm fascial defect which had been enlarged was closed with several interrupted 0 Vicryl sutures. Extra 0.5% Marcaine with epinephrine was used to infiltrate the surrounding tissues for further local anesthesia. The skin was closed with interrupted 4-0 PDS subcutaneous stitches. Steri-Strips were applied and the patient was then taken from the operating room, in satisfactory condition, having tolerated procedure without problem. Estimated blood loss was less than 20 mL's. The instrument, sponge, and needle counts were reported as being correct 2 at the end of procedure. Toro Pardo MD Oct 20, 2016 16:23
[2016-10-20] MEDS ORDERED: KETOROLAC TROMETHAMINE 30 MG/ML (IVP) VIAL ONE (16:30)
[2016-10-20] MEDS ORDERED: ULTR50TA5 PO (16:43)
--- NOTE | 2016-10-20 17:15 | HHI.PR ---
Objective Vitals Vital Signs Date Time Temp Pulse Resp B/P (MAP) Pulse Ox O2 Delivery O2 Flow Rate FiO2 10/20/16 16:00 77 16 167/76 (106) 96 Nasal Cannula 2 10/20/16 15:45 97.6 69 16 173/80 (111) 99 Nasal Cannula 3 10/20/16 10:15 97.9 76 18 133/79 (97) 99 10/20/16 08:00 99.4 83 18 116/68 (84) 96 10/20/16 04:35 99.5 87 16 123/73 (90) 96 10/20/16 00:35 98.8 79 17 124/66 (85) 95 10/19/16 20:20 97.9 77 16 103/59 (74) 96 10/20/16 10/20/16 10/21/16 15:00 23:00 07:00 Intake Total 150 ml 1200 ml Output Total 20 ml Balance 150 ml 1180 ml IV Total 150 ml 1200 ml Output Estimated Blood Loss 20 ml Result Diagram: 10/19/16 0435 10/19/16 0435 A/P Problem List: (1) Acute cholecystitis ICD Codes: K81.0 - Acute cholecystitis Status: Acute Plan: Pt is 62 yo with dm2. His medications have been reduced significantly due to weight loss. abdomen pain/nausea on/off with "35pound weight loss since May" evaluation concerning for acute cholecystitis. known cholelithiasis. ivf pain control npo gen surg consult for lap magalie today ssi. hold scheduled insulin. dvt prophylaxis (2) DM2 (diabetes mellitus, type 2) ICD Codes: E11.9 - Type 2 diabetes mellitus without complications Status: Tree Dougherty DO Oct 20, 2016 17:15
[2016-10-20] MEDS ORDERED: KETOROLAC TROMETHAMINE 30 MG/ML (IVP) VIAL IV PUSH ONE (17:45)
[2016-10-20] MEDS ORDERED: MORPHINE SULFATE 4 MG/ML INJ IV PRN ×2 (17:45)
[2016-10-20] MEDS ORDERED: SODIUM CHLORIDE 0.9% FLUSH 10 ML FLUSH IV FLUSH PRN (17:45)
[2016-10-20] MEDS ORDERED: ONDANSETRON HCL 4 MG/2 ML VIAL IV PRN (17:45)
[2016-10-20] MEDS ORDERED: oxyCODONE/ACETAMINOPHEN 5 MG/325 MG TAB PO PRN ×2 (17:45)
[2016-10-20] MEDS ORDERED: SODIUM CHLORIDE 0.9% FLUSH 10 ML FLUSH IV FLUSH SCH (21:00)
[2016-10-21] VITALS: BP 122/70; PULSE 76; RESP 16; TEMP 97.2; O2SAT 96
[2016-10-21 04:00] VITALS: BP 143/71; PULSE 64; RESP 16; TEMP 96.6; O2SAT 97
[2016-10-21] MEDS: PIPERACIL-TAZO 3.375 GM PREMIX 50 ML IV SCH ×2 (06:00)
[2016-10-21] MEDS: INSULIN ASPART SUPPLEMENTAL SCALE SQ SCH (07:00)
[2016-10-21] MEDS: LISINOPRIL 5 MG TAB PO SCH (07:40)
[2016-10-21 08:00] VITALS: BP 115/70; PULSE 59; RESP 18; TEMP 97.3; O2SAT 97
--- NOTE | 2016-10-21 08:40 | HHI.PR ---
Subjective Remarks feels great. wants to go home Objective Vitals heart reg lung cta abd s/nt. dry blood around steristrips ext no edema Vital Signs Date Time Temp Pulse Resp B/P (MAP) Pulse Ox O2 Delivery O2 Flow Rate FiO2 10/21/16 04:00 96.6 64 16 143/71 (95) 97 10/21/16 00:00 97.2 76 16 122/70 (87) 96 10/20/16 22:41 96 10/20/16 19:00 98.2 83 17 136/74 (94) 95 10/20/16 17:15 97.2 89 18 137/79 (98) 95 10/20/16 17:00 74 16 135/73 (93) 97 Room Air 10/20/16 16:45 76 16 135/71 (92) 97 Room Air 10/20/16 16:30 72 16 138/71 (93) 97 Room Air 10/20/16 16:15 72 16 142/76 (98) 96 Room Air 10/20/16 16:00 77 16 167/76 (106) 96 Nasal Cannula 2 10/20/16 15:45 97.6 69 16 173/80 (111) 99 Nasal Cannula 3 10/20/16 10:15 97.9 76 18 133/79 (97) 99 Result Diagram: 10/19/16 0435 10/19/16 0435 A/P Problem List: (1) Acute cholecystitis ICD Codes: K81.0 - Acute cholecystitis Status: Acute Plan: Pt is 62 yo with dm2. His medications have been reduced significantly due to weight loss. abdomen pain/nausea on/off with "35pound weight loss since May" evaluation concerning for acute cholecystitis. known cholelithiasis. s/ lap magalie shirin diet no pain discussed with dr Pardo. d/c with f/u (2) DM2 (diabetes mellitus, type 2) ICD Codes: E11.9 - Type 2 diabetes mellitus without complications Status: Chronic Dagoberto Stover MD Oct 21, 2016 08:40
--- NOTE | 2016-10-21 08:41 | HHI.DCPOC ---
Discharge Care Plan Diagnosis: (1) Acute cholecystitis Goals to Promote Your Health * To prevent worsening of your condition and complications * To maintain your health at the optimal level Directions to Meet Your Goals Take your medications as prescribed Follow your dietary instruction Follow activity as directed Keep your appointments as scheduled Take your immunizations and boosters as scheduled If your symptoms worsen call your PCP, if no PCP go to Urgent Care Center or Emergency Room Smoking is Dangerous to Your Health. Avoid second hand smoke Call the 24-hour hour crisis hotline for domestic abuse at Dagoberto Stover MD Oct 21, 2016 08:41
[2016-10-21 11:31] VITALS: O2SAT 97
== END 2016-10-21 12:24 | disposition home or self-care (01) | DRG 419 ==
LOC: NEPE 02:24 → NEDA 05:36 → N06B 07:49
PROVIDERS: ADMIT Hospitalist; ATTEND Hospitalist
PROC: 0FT44ZZ Resection of Gallbladder, Percutaneous Endoscopic Approach (ICD-10-PCS; principal; 2016-10-20 14:13)
DX: K80.00 Calculus of gallbladder with acute cholecystitis without obstruction (principal); I10 Essential (primary) hypertension; E11.9 Type 2 diabetes mellitus without complications; E66.9 Obesity, unspecified; R63.4 Abnormal weight loss; F32.9 Major depressive disorder, single episode, unspecified; F41.9 Anxiety disorder, unspecified; Z79.4 Long term (current) use of insulin; Z86.14 Personal history of Methicillin resistant Staphylococcus aureus infection
CPT/HCPCS: 76705; 80053; 82948; 83605; 83690; 83735; 85025; 85610; 85730; 86140; 88304; 93005; 96374; 96375; J0131; J1100; J1815; J1885; J2250; J2270; J2405; J2543; J2710; J3010; J7030; J7042; J7120

== ENCOUNTER 2017-10-01 14:35 | Observation (INO) ==
--- NOTE | 2017-10-01 15:38 | ED ---
HPI General Chief complaint: Chest Pain Stated complaint: St by pt/cardiac Time Seen by Provider: 10/01/17 15:03 History of Present Illness HPI narrative: 62-year-old male with a history of diabetes, hypertension presents to the emergency department for evaluation of shortness of breath. Patient was sent by his primary care provider for evaluation of abnormal EKG done at their office. The patient states that about 2 weeks ago he had sudden onset shortness of breath while taking a shower. States that he became slightly weak and needed his to help him out of the shower. States that once he laid down and the symptoms resolved. States that since then he has noticed that when he climbs the stairs at work he gets short of breath and feels as though when he exerts himself he has slight shortness of breath which is new. He denies any chest pain. States that he has had a slight dry cough that he believes is due to a tickle in his throat, denies any sputum production. Denies any fever, chills, nausea, vomiting. He has also had dizziness for the past several days intermittently. Describes this as feeling as if the room is spinning around him, states that he has a history of vertigo and these are typical of his vertigo spells. States that the dizziness is alleviated with taking meclizine. States that the dizziness and the shortness of breath are unrelated. He denies any history of heart disease. Denies any family history of heart disease. Denies any smoking history. Denies any recent long distance travel, swelling of the extremities, history of blood clots , recent surgery or procedures. No other complaints or concerns. Related Data Home Medications Medication Instructions Recorded Confirmed Probiotic 10/01/17 cholecalciferol (vitamin D3) 2,000 unit PO DAILY 10/01/17 10/01/17 [Vitamin D3] cyanocobalamin (vitamin B-12) 10/01/17 [Vitamin B-12] glimepiride 3 mg PO QAM 10/01/17 10/01/17 insulin glargine [Lantus U-100 40 unit SUB-Q HS 10/01/17 10/01/17 Insulin] lisinopril 10 mg PO DAILY 10/01/17 10/01/17 metformin 1,000 mg PO BID 10/01/17 10/01/17 multivitamin 1 tab PO DAILY 10/01/17 10/01/17 pravastatin 20 mg PO DAILY 10/01/17 10/01/17 zoster vaccine live (PF) [Zostavax 0.65 ml SUB-Q ONCE 10/01/17 10/01/17 (PF)] Allergies Allergy/AdvReac Type Severity Reaction Status Date / Time adhesive Allergy Severe Rash Unverified 10/06/16 15:08 Review of Systems ROS: all other systems reviewed are negative [facility] Medical History Medical History Diabetes (Acute) Hx MRSA infection (Acute) Surgical History Surgical History History of cholecystectomy (Acute) History of knee surgery (Acute) Hx of tonsillectomy (Acute) Previous back surgery (Acute) Social History Social History Second Hand Smoke Exposure: No Smoking Status: Never smoker (Lifelong nonsmoker) How Often Do You Have a Drink Containing Alcohol: Never Hx Recent Travel: No Recent Travel in [facility] within the Last 8 Weeks: No Recent Out of Country Travel within the Last 8 Weeks: No Immunization History Tetanus Immunization: Unsure Hx Influenza Vaccine This Season: Yes Exam Narrative Exam Narrative: GENERAL: Well-nourished and well-developed pleasant patient in no acute distress who is nontoxic appearing. SKIN: Warm and dry. HEAD: Normocephalic and atraumatic. EYES: No injection, drainage, or hyphema noted. PERRLA. EOMI. ENT: No nasal drainage noted. Oropharynx is clear and the TMs are normal with good landmarks. NECK: Supple and the trachea is midline. CARDIOVASCULAR: Regular rate and rhythm. RESPIRATORY: Breath sounds are equal bilaterally with no accessory muscle use, wheezing, rhonchi, or crackles. GASTROINTESTINAL: Abdomen is soft, non-tender, and nondistended. No hepatosplenomegaly. MUSCULOSKELETAL: No obvious deformities, swelling, cyanosis, or ecchymosis is present throughout the upper and lower extremities. Patient has full range of motion without any signs of neurovascular compromise. Distal pulses are 2+ throughout. NEUROLOGICAL: Awake, alert, and oriented. Normal speech and gait. Cranial nerves are grossly intact. Course Initial Documented Vital Signs Temperature 97.9 F 10/01/17 14:43 Pulse Rate 92 H 10/01/17 14:43 Respiratory Rate 16 10/01/17 14:43 Blood Pressure 134/72 10/01/17 14:43 Pulse Oximetry 98 10/01/17 14:43 Last Documented Vital Signs Temperature 98.3 F 10/02/17 08:00 Pulse Rate 66 10/02/17 08:00 Respiratory Rate 16 10/02/17 08:00 Blood Pressure 119/69 10/02/17 08:00 Pulse Oximetry 96 10/02/17 08:33 Clinical Decision Support Wells' Criteria Questions Clinical Signs and Symptoms of DVT: No PE is primary diagnosis or equally likely: No Heart Rate greater than 100: No Immobilized at least 3 days or Surgery in previous 4 weeks: No Previous, objectively diagnosed PE or DVT: No Hemoptysis: No Malignancy with treatment within 6 months or palliative: No Wells' Criteria Score Wells' Criteria Score: 0 Medical Decision Making KAMAR Attestation KAMAR supervised visit: Yes Attestation: I, Dr. Mauro, have reviewed the advance practice practitioner's documentation and am in agreement, met with the patient face to face, made the diagnosis, and the medical decision making was done by me. *My assessment and Findings: Patient seen and evaluated with PA, please see PA notes for further details. EKG done at his primary care physician's office shows nonspecific ST changes in the inferior leads, EKG done here did not show the same changes. Workup was negative. But at this point, my plan would be to admit the patient for further evaluation and chest pain center. [facility] Narrative Medical decision making narrative: 62-year-old male presents to the emergency department for evaluation of shortness of breath and abnormal EKG and his primary care's office. Vital signs are within normal limits. IV access is obtained, labs have been drawn and sent. Patient is placed on cardiac telemetry and pulse oximetry monitoring. EKG from PCP office reviewed with my attending physician and noted to be NSR with no ST elevations or depressions. EKG done here in the ED shows NSR with no ST elevations or depressions. CBC within normal limits, coags within normal limits. D-dimer negative. Troponin less than 0.02. CMP unremarkable. Chest x-ray negative. Patient has remained stable and without complaint while here in the emergency department. Patient will be kept in chest pain center for repeat cardiac enzymes and possible stress testing for exertional shortness of breath. Differential Diagnosis Differential Diagnosis: ACS versus CA versus PE versus CHF versus pneumonia versus other Lab Data Result diagrams: 10/01/17 15:15 10/01/17 15:15 Lab Results 10/01/17 10/01/17 10/01/17 Range/Units 15:15 15:15 15:15 WBC 10.5 (4.0-11.0) th/mm3 RBC 4.46 L (4.50-5.90) mil/mm3 Hgb 13.5 (13.0-17.0) gm/dL Hct 41.1 (39.0-51.0) % MCV 92.1 (80.0-100.0) fL MCH 30.2 (27.0-34.0) pg MCHC 32.8 (32.0-36.0) % RDW 13.7 (11.6-17.2) % Plt Count 194 (150-450) th/mm3 MPV 10.6 (7.0-11.0) fL Neut % (Auto) 70.3 H (16.0-70.0) % Lymph % (Auto) 18.3 (9.0-44.0) % [place] % (Auto) 9.2 H (0.0-8.0) % Eos % (Auto) 1.6 (0.0-4.0) % Baso % (Auto) 0.6 (0.0-2.0) % Neut # (Auto) 7.4 (1.8-7.7) th/mm3 Lymph # (Auto) 1.9 (1.0-4.8) th/mm3 [place] # (Auto) 1.0 H (0.0-0.9) th/mm3 Eos # (Auto) 0.2 (0.0-0.4) th/mm3 Baso # (Auto) 0.1 (0.0-0.2) th/mm3 WBC Differential . Differential Comment Auto diff final D-Dimer Quant (PE/DVT) (0.00-0.50) mg/L FEU Sodium 139 (136-145) meq/L Potassium 5.2 H (3.5-5.1) meq/L Chloride 106 (98-107) meq/L Carbon Dioxide 26.5 (21.0-32.0) meq/L Anion Gap 7 (5-15) meq/L BUN 18 (7-18) mg/dL Creatinine 1.20 (0.60-1.30) mg/dL Estimated GFR 61 L (>89) mL/min POC Glucose (68-110) mg/dl Random Glucose 154 H (74-106) mg/dL Calcium 9.4 (8.5-10.1) mg/dL Total Bilirubin 0.4 (0.2-1.0) mg/dL AST 28 (15-37) U/L ALT 22 (12-78) U/L Alkaline Phosphatase 36 L (45-117) U/L Troponin I Less than 0.02 L (0.02-0.05) ng/mL B-Natriuretic Peptide 16 (0-100) pg/mL Total Protein 7.9 (6.4-8.2) g/dL Albumin 3.8 (3.4-5.0) g/dL 10/01/17 10/01/17 10/01/17 Range/Units 15:15 17:22 18:20 WBC (4.0-11.0) th/mm3 RBC (4.50-5.90) mil/mm3 Hgb (13.0-17.0) gm/dL Hct (39.0-51.0) % MCV (80.0-100.0) fL MCH (27.0-34.0) pg MCHC (32.0-36.0) % RDW (11.6-17.2) % Plt Count (150-450) th/mm3 MPV (7.0-11.0) fL Neut % (Auto) (16.0-70.0) % Lymph % (Auto) (9.0-44.0) % [place] % (Auto) (0.0-8.0) % Eos % (Auto) (0.0-4.0) % Baso % (Auto) (0.0-2.0) % Neut # (Auto) (1.8-7.7) th/mm3 Lymph # (Auto) (1.0-4.8) th/mm3 [place] # (Auto) (0.0-0.9) th/mm3 Eos # (Auto) (0.0-0.4) th/mm3 Baso # (Auto) (0.0-0.2) th/mm3 WBC Differential Differential Comment D-Dimer Quant (PE/DVT) 0.31 (0.00-0.50) mg/L FEU Sodium (136-145) meq/L Potassium (3.5-5.1) meq/L Chloride (98-107) meq/L Carbon Dioxide (21.0-32.0) meq/L Anion Gap (5-15) meq/L BUN (7-18) mg/dL Creatinine (0.60-1.30) mg/dL Estimated GFR (>89) mL/min POC Glucose 63 L (68-110) mg/dl Random Glucose (74-106) mg/dL Calcium (8.5-10.1) mg/dL Total Bilirubin (0.2-1.0) mg/dL AST (15-37) U/L ALT (12-78) U/L Alkaline Phosphatase (45-117) U/L Troponin I Less than 0.02 L (0.02-0.05) ng/mL B-Natriuretic Peptide (0-100) pg/mL Total Protein (6.4-8.2) g/dL Albumin (3.4-5.0) g/dL 10/01/17 10/01/17 10/01/17 Range/Units 18:39 20:52 21:35 WBC (4.0-11.0) th/mm3 RBC (4.50-5.90) mil/mm3 Hgb (13.0-17.0) gm/dL Hct (39.0-51.0) % MCV (80.0-100.0) fL MCH (27.0-34.0) pg MCHC (32.0-36.0) % RDW (11.6-17.2) % Plt Count (150-450) th/mm3 MPV (7.0-11.0) fL Neut % (Auto) (16.0-70.0) % Lymph % (Auto) (9.0-44.0) % [place] % (Auto) (0.0-8.0) % Eos % (Auto) (0.0-4.0) % Baso % (Auto) (0.0-2.0) % Neut # (Auto) (1.8-7.7) th/mm3 Lymph # (Auto) (1.0-4.8) th/mm3 [place] # (Auto) (0.0-0.9) th/mm3 Eos # (Auto) (0.0-0.4) th/mm3 Baso # (Auto) (0.0-0.2) th/mm3 WBC Differential Differential Comment D-Dimer Quant (PE/DVT) (0.00-0.50) mg/L FEU Sodium (136-145) meq/L Potassium (3.5-5.1) meq/L Chloride (98-107) meq/L Carbon Dioxide (21.0-32.0) meq/L Anion Gap (5-15) meq/L BUN (7-18) mg/dL Creatinine (0.60-1.30) mg/dL Estimated GFR (>89) mL/min POC Glucose 117 H 123 H (68-110) mg/dl Random Glucose (74-106) mg/dL Calcium (8.5-10.1) mg/dL Total Bilirubin (0.2-1.0) mg/dL AST (15-37) U/L ALT (12-78) U/L Alkaline Phosphatase (45-117) U/L Troponin I Less than 0.02 L (0.02-0.05) ng/mL B-Natriuretic Peptide (0-100) pg/mL Total Protein (6.4-8.2) g/dL Albumin (3.4-5.0) g/dL 10/02/17 Range/Units 09:27 WBC (4.0-11.0) th/mm3 RBC (4.50-5.90) mil/mm3 Hgb (13.0-17.0) gm/dL Hct (39.0-51.0) % MCV (80.0-100.0) fL MCH (27.0-34.0) pg MCHC (32.0-36.0) % RDW (11.6-17.2) % Plt Count (150-450) th/mm3 MPV (7.0-11.0) fL Neut % (Auto) (16.0-70.0) % Lymph % (Auto) (9.0-44.0) % [place] % (Auto) (0.0-8.0) % Eos % (Auto) (0.0-4.0) % Baso % (Auto) (0.0-2.0) % Neut # (Auto) (1.8-7.7) th/mm3 Lymph # (Auto) (1.0-4.8) th/mm3 [place] # (Auto) (0.0-0.9) th/mm3 Eos # (Auto) (0.0-0.4) th/mm3 Baso # (Auto) (0.0-0.2) th/mm3 WBC Differential Differential Comment D-Dimer Quant (PE/DVT) (0.00-0.50) mg/L FEU Sodium (136-145) meq/L Potassium (3.5-5.1) meq/L Chloride (98-107) meq/L Carbon Dioxide (21.0-32.0) meq/L Anion Gap (5-15) meq/L BUN (7-18) mg/dL Creatinine (0.60-1.30) mg/dL Estimated GFR (>89) mL/min POC Glucose 163 H (68-110) mg/dl Random Glucose (74-106) mg/dL Calcium (8.5-10.1) mg/dL Total Bilirubin (0.2-1.0) mg/dL AST (15-37) U/L ALT (12-78) U/L Alkaline Phosphatase (45-117) U/L Troponin I (0.02-0.05) ng/mL B-Natriuretic Peptide (0-100) pg/mL Total Protein (6.4-8.2) g/dL Albumin (3.4-5.0) g/dL Imaging Data Radiologist's impression: Chest X-Ray 10/01/17 15:21 CONCLUSION: Negative examination. Discharge Plan Discharge Disposition Patient Disposition: 30 Still Patient Discharge Condition Condition: Stable Discharge Order Discharge Orders: Discharge Order (Routine); Ordered 10/02/17 Ordered By: Aleksandra Lopez Discharge Details Anticipated Discharge Date: 10/02/17 Discharge Comment: Request primary care provider evaluate lung function/ studies. Physicians Team ED Provider: Joycelyn Mauro ED Midlevel Provider: Key Lou Primary Care Provider: Tri Mosley Attending Provider: Hadley Tavarez Status ED Status: Left Department Discharge Information Discharge Date/Time: 10/01/17 18:00
--- NOTE | 2017-10-01 15:47 | XR ---
EXAM DATE: 10/01/2017 3:37 PM EDT AGE/SEX: 62 years / Male INDICATIONS: . Chest pain and shortness of breath. CLINICAL DATA: This is the patient's initial encounter. Patient reports that signs and symptoms have been present for 1 day and indicates a pain score of 8/10. MEDICAL/SURGICAL HISTORY: None. None. COMPARISON: No prior exams available for comparison. FINDINGS: PA and lateral views of the chest demonstrate the lungs to be symmetrically aerated without evidence of mass, infiltrate or effusion. The cardiomediastinal contours are unremarkable. Osseous structures are intact. CONCLUSION: Negative examination. Electronically signed by: Darin Prasad MD 10/01/2017 3:45 PM EDT
[2017-10-01 15:50] LABS: Baso # (Auto) 0.1 th/mm3 (0.0-0.2); Baso % (Auto) 0.6 % (0.0-2.0); Eos # (Auto) 0.2 th/mm3 (0.0-0.4); Eos % (Auto) 1.6 % (0.0-4.0); Hematocrit 41.1 % (39.0-51.0); Hemoglobin 13.5 gm/dL (13.0-17.0); Lymph # (Auto) 1.9 th/mm3 (1.0-4.8); Lymph % (Auto) 18.3 % (9.0-44.0); Mean Corpuscular HGB Conc 32.8 % (32.0-36.0); Mean Corpuscular Hemoglobin 30.2 pg (27.0-34.0); Mean Corpuscular Volume 92.1 fL (80.0-100.0); Mean Platelet Volume 10.6 fL (7.0-11.0); Mono % (Auto) 9.2 % (0.0-8.0); Neut # (Auto) 7.4 th/mm3 (1.8-7.7); Neut % (Auto) 70.3 % (16.0-70.0); Platelet Count 194 th/mm3 (150-450); Red Blood Count 4.46 mil/mm3 (4.50-5.90); Red Cell Distribution Width 13.7 % (11.6-17.2); White Blood Count 10.5 th/mm3 (4.0-11.0)
[2017-10-01 16:14] LABS: Alanine Aminotransferase 22 U/L (12-78)
[2017-10-01 16:18] LABS: Alkaline Phosphatase 36 U/L (45-117); Total Protein 7.9 g/dL (6.4-8.2)
[2017-10-01 16:24] LABS: Albumin 3.8 g/dL (3.4-5.0); Anion Gap 7 meq/L (5-15); Aspartate Aminotransferase 28 U/L (15-37); Blood Urea Nitrogen 18 mg/dL (7-18); Calcium 9.4 mg/dL (8.5-10.1); Carbon Dioxide 26.5 meq/L (21.0-32.0); Chloride 106 meq/L (98-107); Glomerular Filtration Rate 61 mL/min (>89); Glucose,Random 154 mg/dL (74-106); Sodium 139 meq/L (136-145)
[2017-10-01 16:30] LABS: Potassium 5.2 meq/L (3.5-5.1)
[2017-10-01] MEDS ORDERED: Insulin NovoLIN Regular Correctional Sugar Inj SQ SCH (21:00)
[2017-10-01 22:24] VITALS: O2SAT 96
[2017-10-02 08:24] VITALS: BP 119/69; PULSE 66; RESP 16; TEMP 98.3
--- NOTE | 2017-10-02 08:48 | ECG ---
Date Performed: 10/01/2017 Time Performed: 15:05:49 PTAGE: 62 years EKG: Sinus rhythm WITH SINUS ARRHYTHMIA NORMAL ECG INTERPRETATION BASED ON A DEFAULT AGE OF 40 YEARS NO PREVIOUS TRACING DOCTOR: Salomon Harmon Interpretating Date/Time 10/02/2017 08:47:41
--- NOTE | 2017-10-02 09:06 | P.HPCA ---
History of Present Illness Primary Care Physician: Tri Mosley MD Chief Complaint: Dizziness and dyspnea on exertion History of Present Illness: 62-year-old male with history of type 2 diabetes presents emergency room as recommended by his primary care provider. Reports 1 month of exertional dyspnea when walking 2 flights of stairs or after getting out of shower. Recovers quickly within a few minutes. No accompanying symptoms of chest pain, nausea, or diaphoresis. History of vertigo for years. Reports "vertigo attack " Wednesday evening and again on Wednesday 06. Describes sensation as room spinning. Went to PCP yesterday afternoon for above symptoms. During appointment and EKG completed suggesting an acute CA, therefore was instructed to go to ER for further evaluation of above and EKG findings. Denies any chest discomfort during EKG or during evening. Verbalizes he is quite upset regarding current admission to hospital. No known coronary artery disease or past cardiac testing. No recent illness, injury, or trauma stating other than above has been in his general state of health. Family history noncontributory for early onset cardiovascular disease. Endorses sedentary lifestyle. - Diagnosis (1) Dyspnea on exertion (2) H/O type 2 diabetes mellitus Review of Systems All other systems reviewed negative except as stated in HPI PMFSH - History History Provided By: Patient, Family Member - Medical History Medical History: Medical History (Last Reviewed 10/02/17 @ 10:48 by HEIDI Schultz) Diabetes Hx MRSA infection - Surgical History Surgical History: Surgical History (Last Updated 10/02/17 @ 10:49 by HEIDI Schultz) History of cholecystectomy History of knee surgery Hx of tonsillectomy Previous back surgery - Tobacco History Second Hand Smoke Exposure: No Tobacco Use In Past 30 Days: No Smoking Status: Never smoker (Lifelong nonsmoker) - Alcohol History How Often Do You Have a Drink Containing Alcohol: Never - Travel History History of Recent Travel: No Recent Travel in the [place] Within the Last 8 Weeks: No Recent Travel Out of the Country Within the Last 8 Weeks: No - Immunization History Tetanus Immunization: Unsure Hx Influenza Vaccine This Season: Yes Medications and Allergies Active Medications: Active Medications Clonidine HCl (Catapres) 0.1 mg PO Q6H PRN PRN Reason: SBP >165 OR DBP > 110 Insulin Human Regular (Novolin R Correctional Sugar Inj) 0 units SQ ACHS BRITTNY; Protocol Last Admin: 10/01/17 20:55 Dose: Not Given Sodium Chloride (Ns Flush) 2 ml IV.FLUSH BID BRITTNY Sodium Chloride (Ns Flush) 2 ml IV.FLUSH PRN PRN PRN Reason: FLUSH AFTER USING IV ACCESS Allergies Allergy/AdvReac Type Severity Reaction Status Date / Time adhesive Allergy Severe Rash Unverified 10/06/16 15:08 Home Medications Medication Instructions Recorded Confirmed Type Probiotic 10/01/17 History cholecalciferol (vitamin D3) 2,000 unit PO DAILY 10/01/17 10/01/17 History [Vitamin D3] cyanocobalamin (vitamin B-12) 10/01/17 History [Vitamin B-12] glimepiride 3 mg PO QAM 10/01/17 10/01/17 History insulin glargine [Lantus U-100 40 unit SUB-Q HS 10/01/17 10/01/17 History Insulin] lisinopril 10 mg PO DAILY 10/01/17 10/01/17 History metformin 1,000 mg PO BID 10/01/17 10/01/17 History multivitamin 1 tab PO DAILY 10/01/17 10/01/17 History pravastatin 20 mg PO DAILY 10/01/17 10/01/17 History zoster vaccine live (PF) [Zostavax 0.65 ml SUB-Q ONCE 10/01/17 10/01/17 History (PF)] Exam Vital signs: Vital Signs 10/01/17 14:43 10/01/17 15:07 10/01/17 16:17 Temperature 97.9 F Pulse Rate 92 H 94 H 84 Respiratory Rate 16 20 16 Blood Pressure 134/72 141/86 H 123/69 Pulse Oximetry 98 98 96 10/01/17 16:18 10/01/17 18:00 10/01/17 20:00 Temperature 98.8 F 98.3 F Pulse Rate 76 85 Respiratory Rate 18 18 Blood Pressure 127/73 113/65 Pulse Oximetry 96 99 95 10/01/17 22:24 10/01/17 23:31 10/02/17 00:00 Temperature 98.2 F Pulse Rate 70 72 Respiratory Rate 18 Blood Pressure 114/69 Pulse Oximetry 96 96 10/02/17 03:52 10/02/17 04:00 10/02/17 08:00 Temperature 98.2 F 98.3 F Pulse Rate 71 70 66 Respiratory Rate 18 16 Blood Pressure 121/65 119/69 Pulse Oximetry 96 96 10/02/17 08:33 Temperature Pulse Rate Respiratory Rate Blood Pressure Pulse Oximetry 96 Intake & Output 10/01/17 10/02/17 10/02/17 18:59 06:59 18:59 Weight 102.058 kg Narrative: GENERAL: Alert WN, WD, NAD, pleasant, male HEAD: NC, AT CV: RRR, without murmur, rub, or gallop. RESP: Clear lungs throughout bilateral, no crackles, wheeze, rhonchi, symmetrical chest rise, nonlabored, able to speak in full sentences ABD: Soft, NT, ND, no masses, positive bowel tones EXT: Pulses +2x4, no dependent edema MS: Normal tone x4 extremities, nontender, no obvious deformities, full range of motion NEURO: CN II through CN XII grossly intact, motor strength 5/5, gait WNL PSYCH: A+O x3, pleasant affect, appropriate speech, mood, insight and judgment SKIN: Normal turgor, normal texture, no lesions, no rashes, brisk cap refill, even hair distribution, midline low back surgical scar Results 10/01/17 15:15 10/01/17 15:15 Cardiac Enzymes 10/01/17 10/01/17 10/01/17 Range/Units 15:15 15:15 18:20 AST 28 (15-37) U/L Troponin I Less than 0.02 L Less than 0.02 L (0.02-0.05) ng/mL B-Natriuretic Peptide 16 (0-100) pg/mL 10/01/17 Range/Units 21:35 AST (15-37) U/L Troponin I Less than 0.02 L (0.02-0.05) ng/mL B-Natriuretic Peptide (0-100) pg/mL Coagulation 10/01/17 Range/Units 15:15 B-Natriuretic Peptide 16 (0-100) pg/mL CBC 10/01/17 Range/Units 15:15 WBC 10.5 (4.0-11.0) th/mm3 RBC 4.46 L (4.50-5.90) mil/mm3 Hgb 13.5 (13.0-17.0) gm/dL Hct 41.1 (39.0-51.0) % Plt Count 194 (150-450) th/mm3 Neut # (Auto) 7.4 (1.8-7.7) th/mm3 Lymph # (Auto) 1.9 (1.0-4.8) th/mm3 [place] # (Auto) 1.0 H (0.0-0.9) th/mm3 Eos # (Auto) 0.2 (0.0-0.4) th/mm3 Baso # (Auto) 0.1 (0.0-0.2) th/mm3 Comprehensive Metabolic Panel 10/01/17 Range/Units 15:15 Sodium 139 (136-145) meq/L Potassium 5.2 H (3.5-5.1) meq/L Chloride 106 (98-107) meq/L Carbon Dioxide 26.5 (21.0-32.0) meq/L BUN 18 (7-18) mg/dL Creatinine 1.20 (0.60-1.30) mg/dL Calcium 9.4 (8.5-10.1) mg/dL AST 28 (15-37) U/L ALT 22 (12-78) U/L Alkaline Phosphatase 36 L (45-117) U/L Total Protein 7.9 (6.4-8.2) g/dL Albumin 3.8 (3.4-5.0) g/dL EKG interpretations - EKG EKG results cardiology: sinus rhythm, normal axis, normal QRS, normal ST/T Caprini VTE Risk Assessment Caprini VTE Risk Assessment: Moderate/High Risk (score >= 2) Caprini Risk Assessment Model: Point Value = 1 Point Value = 2 Point Value = 3 Point Value = 5 Age 41-60 Minor surgery BMI > 25 kg/m2 Swollen legs Varicose veins or History of unexplained or recurrent spontaneous Oral contraceptives or hormone replacement Sepsis (< 1 month) Serious lung disease, including pneumonia (< 1 month) Abnormal pulmonary function Acute myocardial infarction Congestive heart failure (< 1 month) History of inflammatory bowel disease Medical patient at bed rest Age 61-74 Arthroscopic surgery Major open surgery (> 45 min) Laparoscopic surgery (> 45 min) Malignancy Confined to bed (> 72 hours) Immobilizing plaster cast Central venous access Age >= 75 History of VTE Family history of VTE Factor V Leiden Prothrombin [id number] Lupus anticoagulant Anticardiolipin antibodies Elevated serum homocysteine Heparin-induced thrombocytopenia Other congenital or acquired thrombophilia Stroke (< 1 month) Elective arthroplasty Hip, pelvis, or leg fracture Acute spinal cord injury (< 1 month) Prophylaxis Regimen: Total Risk Factor Score Risk Level Prophylaxis Regimen 0-1 Low Early ambulation 2 Moderate Order ONE of the following: *Sequential Compression Device (SCD) *Heparin 5000 units SQ BID 3-4 Higher Order ONE of the following medications: *Heparin 5000 units SQ TID *Enoxaparin/Lovenox 40 mg SQ daily (WT < 150 kg, CrCl > 30 mL/min) *Enoxaparin/Lovenox 30 mg SQ daily (WT < 150 kg, CrCl > 10-29 mL/min) *Enoxaparin/Lovenox 30 mg SQ BID (WT < 150 kg, CrCl > 30 mL/min) AND/OR *Sequential Compression Device (SCD) 5 or more Highest Order ONE of the following medications: *Heparin 5000 units SQ TID (Preferred with Epidurals) *Enoxaparin/Lovenox 40 mg SQ daily (WT < 150 kg, CrCl > 30 mL/min) *Enoxaparin/Lovenox 30 mg SQ daily (WT < 150 kg, CrCl > 10-29 mL/min) *Enoxaparin/Lovenox 30 mg SQ BID (WT < 150 kg, CrCl > 30 mL/min) AND *Sequential Compression Device (SCD) Assessment and Plan - Assessment (1) Dyspnea on exertion Code(s): R06.09 - Other forms of dyspnea Status: Acute Plan: Admitted to chest pain center. ACS ruled out 3 sets of EKGs and cardiac enzymes. EKG reviewed from patient's primary care office also normal sinus rhythm. Seen and evaluated by Dr. Johnie Bonilla. D-dimer 0.31. Proceed with exercise cardiac stress testing this morning. If unremarkable, plans will be to discharge home with further follow up PCP investigating a possible respiratory etiology for dyspnea. Verbalized understanding and agreeable to plan of care. (2) H/O type 2 diabetes mellitus Code(s): Z86.39 - Personal history of other endocrine, nutritional and metabolic disease Status: Chronic Plan: Hold oral anti-glycemic's until discharge. Follow-up with PCP as previously instructed.
[2017-10-02] MEDS ORDERED: Lisinopril 10 MG Tablet PO SCH (10:30)
--- NOTE | 2017-10-02 12:57 | ECG ---
Date Performed: 10/01/2017 Time Performed: 21:35:18 PTAGE: 62 years EKG: Sinus rhythm NORMAL ECG PREVIOUS TRACING : 10/01/2017 18.36 DOCTOR: Johnie Bonilla Interpretating Date/Time 10/02/2017 12:56:36
--- NOTE | 2017-10-02 12:58 | ECG ---
Date Performed: 10/01/2017 Time Performed: 18:36:40 PTAGE: 62 years EKG: Sinus rhythm NORMAL ECG NO PREVIOUS TRACING DOCTOR: Johnie Bonilla Interpretating Date/Time 10/02/2017 12:56:52
--- NOTE | 2017-10-02 13:02 | TR ---
Date Performed: 10/02/2017 Time Performed: 09:56:45 DOCTOR: Johnie Bonilla DRUG LIST: CLINICAL HISTORY: CHEST PAIN REASON FOR TEST: Chest pain REASON FOR ENDING: OBSERVATION: CONCLUSION: Luan protocol completed. Stopped sec to reaching target heart rate and dyspnea. Max imum UA=371 Target HR Achieved=92.0% Maximum RJ=749/92 Total Exercise Time=4:01. No reprod chest disc omfort. Infrequent PVCs. St segments unchanged, nondiagnostic. Normal bp response. Fair exercise tole adelia. Recovery quick and unremarkable. COMMENTS: Patient is rather severely deconditioned and is somewhat limited by shortness of breat h however he showed no EKG changes diagnostic of ischemia.
== END 2017-10-02 14:05 | disposition home or self-care (01) ==
LOC: NEPGCP 14:35 → NEDA 14:35 → NEPC 14:35 → NEDA 18:00 → NEPGCP 18:03
PROVIDERS: ADMIT Internal Medicine Cardiovascular Disease; ATTEND Internal Medicine Cardiovascular Disease